=== PATIENT | female | born 1980 | race Caucasian/White ===

== ENCOUNTER → 2017-01-17 | Outpatient (CLI) | payer OTHER ==
[~2017-01-17] MED LIST: CEPH500C PO; DCS100C PO; IBP800T PO; OXYC-197 PO; OXYC1TAB12 PO; PREN1TAB71 PO; birth control PO
--- NOTE | 2017-01-17 20:05 | Diagnostic Imaging Report ---
Right breast diagnostic mammogram. INDICATION: Asymmetries along the posterolateral aspect of the right breast seen on CC projection. The current study was also evaluated with a Computer Aided Detection (CAD) system. FINDINGS: Focal compression view and true lateral and MLO views are performed with no underlying abnormality seen. IMPRESSION: No mammographic evidence of malignancy. Ultrasound evaluation pending. ACR BI-RADS Category 0: Incomplete. (Needs additional imaging evaluation). Result letter will be mailed to the patient. Note: At least 10% of breast cancer is not imaged by mammography. Dictated by: Dictated on workstation # [id number]
--- NOTE | 2017-01-17 20:25 | Diagnostic Imaging Report ---
Right breast ultrasound. INDICATION: Asymmetries along the outer aspect of the right breast. FINDINGS: The four quadrants and retroareolar region of the right breast were scanned with no underlying abnormality seen. IMPRESSION: Negative study. ACR BI-RADS Category 1: Negative. Dictated by: Dictated on workstation # [id number]
== END ==
LOC: RAD 12:21
PROVIDERS: ATTEND Family Medicine
DX: R92.2 Inconclusive mammogram (principal)
CPT/HCPCS: 76641

== ENCOUNTER 2017-11-16 22:02 | Emergency (ER) | payer OTHER ==
[~2017-11-16] VITALS: Ht 154.9 cm; Wt 85.7 kg
[2017-11-17] MEDS ORDERED: KETOROLAC 30 MG/ML VIAL IM ONE (00:30)
[2017-11-17] MEDS ORDERED: ORPHENADRINE 60 MG/2 ML (NORFLEX) AMP IM ONE (00:30)
--- NOTE | 2017-11-17 01:57 | ED General ---
General Chief Complaint: Head/Cervical Problems Stated Complaint: HEADACHE Nursing Triage Note: pt c/o cold symptoms x 1 week. headache x 2 days. Nursing Sepsis Screen: No Definite Risk Source of Information: Patient Exam Limitations: No Limitations History of Present Illness Date Seen by Provider: Nov 17, 2017 Time Seen by Provider: 00:11 Initial Comments This 37-year-old woman presents to the emergency room with complaints of cold symptoms and flulike symptoms including headache, neck ache and stiffness, ear discomfort, cough, chills, myalgia. She denies fever, vomiting, diarrhea. She is tachycardic but notes that her normal heart rate is around 100. She is also hypertensive today. Allergies and Home Medications Allergies Coded Allergies: No Known Drug Allergies (Unverified , 12/07/13) Home Medications Oxycodone HCl/Acetaminophen 1 Each Tablet, 1 EACH PO Q4H PRN for ABDOMINAL PAIN Prescribed by: SUSAN MCCARTY on 05/05/16 1150 [ control] , PO DAILY, (Reported) Patient Home Medication List Home Medication List Reviewed: Yes Constitutional: see HPI EENTM: see HPI Respiratory: see HPI Cardiovascular: see HPI Gastrointestinal: no symptoms reported Genitourinary: no symptoms reported : No Musculoskeletal: see HPI Skin: no symptoms reported Psychiatric/Neurological: See HPI Hematologic/Lymphatic: No Symptoms Reported Immunological/Allergic: no symptoms reported Past Jdymhvm-Ohdssp-Elzqpl Hx Patient Social History Alcohol Use: Denies Use Recreational Drug Use: No Smoking Status: Never a Smoker Recent Foreign Travel: No Contact w/Someone Who Travel: No Recent Infectious Disease Expo: No Recent Hopitalizations: No Physical Abuse: No Sexual Abuse: No Mistreated: No Fear: No Immunizations Up To Date Tetanus Booster (TDap): Less than 5yrs Date of Influenza Vaccine: Oct 19, 2014 Surgeries History of Surgeries: Yes Surgeries: Abdominal (Ventral hernia repair), Section Respiratory History of Respiratory Disorde: No Cardiovascular History of Cardiac Disorders: No Neurological History of Neurological Disord: No Reproductive System : No Hx Reproductive Disorders: No Genitourinary History of Genitourinary Disor: No Gastrointestinal History of Gastrointestinal Di: No Musculoskeletal History of Musculoskeletal Dis: No Endocrine History of Endocrine Disorders: No HEENT History of HEENT Disorders: No Cancer History of Cancer: No Psychosocial History of Psychiatric Problem: No Suicide Risk Score: 1 Integumentary History of Skin or Integumenta: No Blood Transfusions History of Blood Disorders: No Adverse Reaction to a Blood Tr: No Family Medical History Family Medial History: Completed stroke 19 FATHER Hypercholesterolemia 19 FATHER Hypertension 19 FATHER 19 MOTHER No Family History of: AIDS Abdominal aortic aneurysm Rudolph's disease Alcoholism Alzheimer's disease Aphasia Arthritis Asthma Cancer of mouth Cardiovascular disease Cataracts Colon cancer Congenital disease Congenital heart disease Coronary thrombosis Cystic fibrosis Deafness or hearing loss Dementia Diabetes mellitus Drug abuse Dysphasia Fibrocystic disease of breast Gastroenteritis Glaucoma Headache disorder Infertility Kidney disease Myocardial infarction Neoplasm Not obtainable due to adoption Osteoporosis Parkinson's disease Prostate cancer Psychosocial problem Respiratory disorder Seizure disorder Severe allergy Thyroid disease Tuberculosis Visual disorder Physical Exam Vital Signs Vital Signs - First Documented 11/16/17 22:22 Temp 99.1 Pulse 107 Resp 16 B/P (MAP) 173/100 (124) Pulse Ox 96 O2 Delivery Room Air Capillary Refill : Less Than 3 Seconds General Appearance: No Apparent Distress, WD/WN HEENT: PERRL/EOMI, TMs Normal, Normal ENT Inspection, Pharynx Normal Neck: Full Range of Motion, Tender Lateral, Other (No nuchal rigidity) Respiratory: Lungs Clear, Normal Breath Sounds, No Accessory Muscle Use, No Respiratory Distress, Wheezing (With forced expiration. Delayed expiratory phase) Cardiovascular: No Edema, Tachycardia Gastrointestinal: Normal Bowel Sounds, Non Tender, Soft Back: Other (Tense tender musculature in the upper back and shoulders) Extremity: Normal Inspection Neurologic/Psychiatric: Alert, Oriented x3, No Motor/Sensory Deficits, Normal Mood/Affect, naval engineer II-XII Norm as Tested Skin: Normal Color, Warm/Dry Progress/Results/Core Measures Suspected Sepsis Recent Fever Within 48 Hours: No Infection Criteria Present: Suspected New Infection New/Unexplained Altered Menta: No Sepsis Screen: No Definite Risk Sepsis Diagnosis: SIRS Temperature:99.1 Pulse: 107 Respiratory Rate: 16 Blood Pressure 173 /100 Mean: 124 Results/Orders Micro Results Microbiology 11/17/17 Influenza Types A,B Antigen (JAMEL) - Final, Complete My Orders Orders - LOVE HAINES MD Influenza A And B Antigens (11/17/17 00:21) Ketorolac Injection (Toradol Injection) (11/17/17 00:30) Orphenadrine Injection (Norflex Injectio (11/17/17 00:30) Rx-Albuterol Inhaler (Rx-Proair) (11/17/17 01:59) Medications Given in ED Vital Signs/I&O Capillary Refill : Less Than 3 Seconds Blood Pressure Mean: 124 Progress Note : Progress Note Influenza screen was negative. Patient was treated with Norflex and Toradol which improved her discomfort markedly. Blood pressure improved after pain was controlled. A take-home inhaler was dispensed to treat her bronchitis. Departure Impression Impression: Primary Impression: Flu-like symptoms Additional Impressions: Sinus tachycardia Acute headache Qualified Codes: R51 - Headache Acute bronchitis Qualified Codes: J20.9 - Acute bronchitis, unspecified Disposition: HOME, SELF-CARE Condition: Improved Departure-Patient Inst. Decision time for Depature: 01:45 Referrals: JEANNIE RODRIGUEZ MD (PCP/Family) Primary Care Physician Patient Instructions: Acute Bronchitis in Adults Add. Discharge Instructions: Drink plenty of clear liquids. You may take ibuprofen up to 600 mg every 6 hours as needed for pain. Add Tylenol (acetaminophen) up to 1000 mg every 6 hours as needed for additional relief. Schedule follow-up appointment with Dr. Rodriguez to discuss your symptoms and your high heart rate. Return to care if symptoms worsen. Use your inhaler 1-4 puffs and a four-hour period of time as needed for wheezing, uncontrolled cough, and shortness of breath. All discharge instructions reviewed with patient and/or family. Voiced understanding. LOVE HAINES MD Nov 17, 2017 01:57
[2017-11-17] MEDS ORDERED: RX-ALBUTEROL INHALER (PROAIR) 8 GM IH STA (01:59)
[2017-11-17 02:08] VITALS: BP 137/97
== END 2017-11-17 02:08 | disposition home or self-care (01) ==
LOC: EDUNIT# 22:02 → ER 22:03
DX: J11.1 Influenza due to unidentified influenza virus with other respiratory manifestations (principal); R00.0 Tachycardia, unspecified; R51 Headache; J20.9 Acute bronchitis, unspecified; Z82.49 Family history of ischemic heart disease and other diseases of the circulatory system
CPT/HCPCS: 87804; 99284

== ENCOUNTER 2020-09-30 11:44 | Emergency (ER) | payer BC, OTHER ==
[~2020-09-30] VITALS: Ht 157.4 cm; Wt 90.7 kg
[~2020-09-30 11:44] MED LIST changes: -OXYC-197 PO; +OXYC1TAB87 PO
[2020-09-30 12:00] VITALS: BP 181/128
[2020-09-30] MEDS ORDERED: PRD20T PO (12:06)
[2020-09-30] MEDS ORDERED: AZIT250T12 PO (12:06)
--- NOTE | 2020-09-30 12:07 | ED EENT ---
History of Present Illness General Chief Complaint: Ear Problems Stated Complaint: EAR DRAINAGE, HORSENESS Source: patient Exam Limitations: no limitations History of Present Illness Date Seen by Provider: Sep 30, 2020 Time Seen by Provider: 12:04 Initial Comments To ER with drainage from her left ear for about 2 or 3 days. This morning she awakened with a hoarse voice. No fevers chills or cough. Timing/Duration: abrupt Severity: moderate Location: throat Prearrival Treatment: no prearrival treatment Associated Symptoms: denies symptoms Allergies and Home Medications Allergies Coded Allergies: No Known Drug Allergies (Unverified , 12/07/13) Home Medications Oxycodone HCl/Acetaminophen 1 Each Tablet, 1 EACH PO Q4H PRN for ABDOMINAL PAIN Prescribed by: SUSAN MCCARTY on 05/05/16 1150 [ control] , PO DAILY, (Reported) Patient Home Medication List Home Medication List Reviewed: Yes Review of Systems Review of Systems Constitutional: see HPI Eyes: No Symptoms Reported Ears: No Symptoms Reported Nose: no symptoms reported Mouth: no symptoms reported Throat: see HPI Respiratory: no symptoms reported Cardiovascular: no symptoms reported Musculoskeletal: no symptoms reported Past Iwgawxx-Kmxxid-Dkacyp Hx Patient Social History Recent Hopitalizations: No Immunizations Up To Date Tetanus Booster (TDap): Less than 5yrs Date of Influenza Vaccine: Oct 19, 2014 Past Medical History Surgeries: Yes Abdominal, Section Respiratory: No Cardiac: No Neurological: No Reproductive Disorders: No Genitourinary: No Gastrointestinal: No Musculoskeletal: No Endocrine: No HEENT: No Cancer: No Psychosocial: No Integumentary: No Blood Disorders: No Adverse Reaction/Blood Tranf: No Family Medical History Completed stroke 19 FATHER Hypercholesterolemia 19 FATHER Hypertension 19 FATHER 19 MOTHER No Family History of: AIDS Abdominal aortic aneurysm Redwood's disease Alcoholism Alzheimer's disease Aphasia Arthritis Asthma Cancer of mouth Cardiovascular disease Cataracts Colon cancer Congenital disease Congenital heart disease Coronary thrombosis Cystic fibrosis Deafness or hearing loss Dementia Diabetes mellitus Drug abuse Dysphasia Fibrocystic disease of breast Gastroenteritis Glaucoma Headache disorder Infertility Kidney disease Myocardial infarction Neoplasm Not obtainable due to adoption Osteoporosis Parkinson's disease Prostate cancer Psychosocial problem Respiratory disorder Seizure disorder Severe allergy Thyroid disease Tuberculosis Visual disorder Physical Exam Height, Weight, BMI Height: 5'1.00" Weight: 189lbs. 0.0oz. 85.526428la; 29.95 BMI Method:Stated General Appearance: WD/WN, no apparent distress Eyes: bilateral eye normal inspection, bilateral eye PERRL, bilateral eye EOMI Ears: bilateral ear auricle normal, bilateral ear canal normal, bilateral ear TM normal, bilateral ear other (The external auditory canal on both sides is clean with minimal cerumen. The tympanic membrane is easily visualized and pearly collins without bulging or erythema.) Nose: normal inspection Mouth/Throat: normal mouth inspection, pharynx normal Neck: non-tender, full range of motion Respiratory: no respiratory distress, no accessory muscle use Neurologic/Psychiatric: alert, normal mood/affect, oriented x 3 Skin: normal color, warm/dry Departure Impression Primary Impression: Laryngitis Disposition: HOME, SELF-CARE Condition: Stable Departure-Patient Inst. Decision time for Depature: 12:05 Referrals: JEANNIE BERRY MD (PCP/Family) Primary Care Physician Patient Instructions: Laryngitis Add. Discharge Instructions: 1. Steroids as directed. If no improvement in 2 days then you can start the antibiotic. If you do improve then do not start the antibiotic. Return to ER for any worsening. All discharge instructions reviewed with patient and/or family. Voiced understanding. Scripts Prednisone (Prednisone) 20 Mg Tab 40 MG PO DAILY, #4 TAB 0 Refills Prov: CARLOS CLAROS APRN 09/30/20 Azithromycin (Azithromycin) 250 Mg Tablet 250 MG PO UD, #6 TAB TAKE 2 TABLETS ON DAY ONE THEN TAKE 1 TABLET DAILY FOR FOUR MORE DAYS Prov: CARLOS CLAROS APRN 09/30/20 CARLOS CLAROS APRN Sep 30, 2020 12:06
[2020-09-30] MEDS ORDERED: cloNIDine 0.1 MG (CATAPRES) TAB PO ONE (12:15)
== END 2020-09-30 12:40 | disposition home or self-care (01) ==
LOC: EDUNIT# 11:44 → ER 11:47
DX: J04.0 Acute laryngitis (principal); Z82.49 Family history of ischemic heart disease and other diseases of the circulatory system
CPT/HCPCS: 99284

== ENCOUNTER 2020-11-18 06:07 | Emergency (ER) | payer BC ==
[~2020-11-18] VITALS: Ht 157.4 cm; Wt 90.7 kg
[~2020-11-18 06:07] MED LIST changes: +AZIT250T12 PO; +PRD20T PO
--- NOTE | 2020-11-18 06:23 | ED EENT ---
History of Present Illness General Chief Complaint: Oral/Throat Problems Stated Complaint: THROAT PAIN;DIFFICULTY BREATHING Source: patient Exam Limitations: no limitations History of Present Illness Date Seen by Provider: Nov 18, 2020 Time Seen by Provider: 06:15 Initial Comments Patient is a 40-year-old female who presents to the emergency department today with a chief complaint of throat pain/hoarseness. Patient woke up with the pain this morning at around 3 AM. Patient states "I think my laryngitis is back". Patient states that she had similar symptoms at the end of September and was treated with steroids and antibiotics. Patient denies any fevers or chills, cough congestion or upper respiratory symptoms. Patient states she feels a little bit of shortness of breath secondary to her "throat closing". Patient denies any history of Covid contacts. She is a non-smoker, nondrinker, no street drug use. Patient denies any allergies to medications. Patient tells me that she has a history of hypertension and takes a blood pressure medication that is combined with a diuretic. She has not taken her medications this morning. Blood pressure at the bedside is 175/108. She denies headache, vision changes. No chest pain, abdominal pain. All other review of systems reviewed and negative except as stated. Timing/Duration: abrupt (3 AM) Severity: moderate Location: throat Prearrival Treatment: no prearrival treatment Associated Symptoms: denies symptoms, sore throat Allergies and Home Medications Allergies Coded Allergies: No Known Drug Allergies (Unverified , 12/07/13) Home Medications Azithromycin 250 Mg Tablet, 250 MG PO UD TAKE 2 TABLETS ON DAY ONE THEN TAKE 1 TABLET DAILY FOR FOUR MORE DAYS Prescribed by: CARLOS CLAROS on 09/30/20 1206 Oxycodone HCl/Acetaminophen 1 Each Tablet, 1 EACH PO Q4H PRN for ABDOMINAL PAIN Prescribed by: SUSAN MCCARTY on 05/05/16 1150 Prednisone 20 Mg Tab, 40 MG PO DAILY Prescribed by: CARLOS CLAROS on 09/30/20 1206 [ control] , PO DAILY, (Reported) Patient Home Medication List Home Medication List Reviewed: Yes Review of Systems Review of Systems Constitutional: see HPI Eyes: No Symptoms Reported Ears: No Symptoms Reported Nose: no symptoms reported Mouth: no symptoms reported Throat: hoarse Respiratory: short of breath Cardiovascular: no symptoms reported Gastrointestinal: no symptoms reported : No Musculoskeletal: no symptoms reported Skin: no symptoms reported All Other Systems Reviewed Negative Unless Noted: Yes Past Wkqizub-Jtqtze-Cmwmfn Hx Patient Social History 2nd Hand Smoke Exposure: No Recent Hopitalizations: No Immunizations Up To Date Tetanus Booster (TDap): Less than 5yrs Date of Influenza Vaccine: Oct 19, 2014 Past Medical History Surgeries: Yes Abdominal, Section Respiratory: No Cardiac: No Neurological: No Reproductive Disorders: No Genitourinary: No Gastrointestinal: No Musculoskeletal: No Endocrine: No HEENT: No Cancer: No Psychosocial: No Integumentary: No Blood Disorders: No Adverse Reaction/Blood Tranf: No Family Medical History Completed stroke 19 FATHER Hypercholesterolemia 19 FATHER Hypertension 19 FATHER 19 MOTHER No Family History of: AIDS Abdominal aortic aneurysm Rudolph's disease Alcoholism Alzheimer's disease Aphasia Arthritis Asthma Cancer of mouth Cardiovascular disease Cataracts Colon cancer Congenital disease Congenital heart disease Coronary thrombosis Cystic fibrosis Deafness or hearing loss Dementia Diabetes mellitus Drug abuse Dysphasia Fibrocystic disease of breast Gastroenteritis Glaucoma Headache disorder Infertility Kidney disease Myocardial infarction Neoplasm Not obtainable due to adoption Osteoporosis Parkinson's disease Prostate cancer Psychosocial problem Respiratory disorder Seizure disorder Severe allergy Thyroid disease Tuberculosis Visual disorder Physical Exam Vital Signs Vital Signs - First Documented 11/18/20 06:10 Temp 35.7 Pulse 106 Resp 18 B/P (MAP) 175/108 (130) Pulse Ox 98 O2 Delivery Room Air Height, Weight, BMI Height: 5'1.00" Weight: 189lbs. 0.0oz. 85.729865dp; 36.00 BMI Method:Stated General Appearance: WD/WN, no apparent distress Eyes: bilateral eye normal inspection, bilateral eye PERRL, bilateral eye abnormal EOM Ears: bilateral ear TM normal Nose: normal inspection Mouth/Throat: normal mouth inspection, pharynx normal; No dental tenderness, No pharynx swelling, No tongue swollen, No tonsillar exudate, No uvula swelling; voice changes Neck: full range of motion, supple, normal inspection Cardiovascular: regular rate, rhythm Respiratory: lungs clear, normal breath sounds, no respiratory distress, no accessory muscle use Gastrointestinal: non tender, soft Neurologic/Psychiatric: no motor/sensory deficits, alert, normal mood/affect, oriented x 3 Skin: normal color, warm/dry Progress/Results/Core Measures Results/Orders Vital Signs/I&O 11/18/20 06:10 Temp 35.7 Pulse 106 Resp 18 B/P (MAP) 175/108 (130) Pulse Ox 98 O2 Delivery Room Air Departure Impression Primary Impression: Laryngitis Disposition: HOME, SELF-CARE Condition: Stable Departure-Patient Inst. Decision time for Depature: 06:24 Referrals: JEANNIE BERRY MD (PCP/Family) Primary Care Physician Patient Instructions: Laryngitis (DC) Add. Discharge Instructions: Drink plenty of fluids to stay well-hydrated. Use thqg-[id number] Tylenol 2 extra strength tablets, every 4 hours as needed for throat pain. Warm salt water gargles. Take the prednisone as directed starting tomorrow for the next 3 days. If you develop fever, worsening shortness of breath, worsening sore throat or any other emergent concerning symptoms please come back to the emergency department for reevaluation. Make sure you take your blood pressure medications this morning. Scripts Prednisone (Prednisone) 20 Mg Tab 40 MG PO DAILY, #6 TAB 0 Refills Prov: KIANA MILLIGAN MD 11/18/20 KIANA MILLIGAN MD Nov 18, 2020 06:23
[2020-11-18] MEDS ORDERED: PRD20T PO (06:25)
[2020-11-18 06:47] VITALS: BP 155/95
== END 2020-11-18 06:47 | disposition home or self-care (01) ==
LOC: EDUNIT# 06:07 → ER 06:09
DX: J04.0 Acute laryngitis (principal); I10 Essential (primary) hypertension; Z79.899 Other long term (current) drug therapy; Z79.3 Long term (current) use of hormonal contraceptives; Z79.52 Long term (current) use of systemic steroids
CPT/HCPCS: 99284

== ENCOUNTER 2020-12-26 02:11 | Emergency (ER) | payer BC ==
[~2020-12-26] VITALS: Ht 157.4 cm; Wt 90.7 kg
--- NOTE | 2020-12-26 02:28 | ED EENT ---
History of Present Illness General Stated Complaint: POSS ALLERGIC RXN,SOB Source: patient Exam Limitations: no limitations History of Present Illness Date Seen by Provider: Dec 26, 2020 Time Seen by Provider: 02:16 Initial Comments Patient presents to the ER by private conveyance with chief complaint she woke up just prior to arrival feeling like her throat was swelling shut. She does not have a history of anaphylaxis however she has had similar symptoms to this and was told it was laryngitis. She has had no sick contacts fevers chills cough or shortness of air. She went to her sinus track meet last night and everything was okay until she woke up early this morning. She has had no new medications, detergents, foods etc. She did not take anything for it before coming in. She is able to swallow her own secretions. She denies nausea vomiting or diarrhea. Allergies and Home Medications Allergies Coded Allergies: No Known Drug Allergies (Unverified , 12/07/13) Home Medications Azithromycin 250 Mg Tablet, 250 MG PO UD TAKE 2 TABLETS ON DAY ONE THEN TAKE 1 TABLET DAILY FOR FOUR MORE DAYS Prescribed by: CARLOS CLAROS on 09/30/20 1206 Oxycodone HCl/Acetaminophen 1 Each Tablet, 1 EACH PO Q4H PRN for ABDOMINAL PAIN Prescribed by: SUSAN MCCARTY on 05/05/16 1150 Prednisone 20 Mg Tab, 40 MG PO DAILY Prescribed by: CARLOS CLAROS on 09/30/20 1206 Prednisone 20 Mg Tab, 40 MG PO DAILY Prescribed by: KIANA MILLIGAN on 11/18/20 0625 [ control] , PO DAILY, (Reported) Patient Home Medication List Home Medication List Reviewed: Yes Review of Systems Review of Systems Constitutional: No chills, No diaphoresis Eyes: Denies Blindness, Denies Drainage Ears: Denies Dizziness, Denies Pain Nose: denies clots, denies congestion Mouth: denies clots, denies pain, denies swelling Throat: pain, swelling; denies neck stiffness; hoarse Respiratory: No cough; short of breath Cardiovascular: No edema, No palpitations Gastrointestinal: No abdominal pain, No nausea, No vomiting Musculoskeletal: No back pain, No joint pain All Other Systems Reviewed Negative Unless Noted: Yes Past Silbfly-Itkpzj-Tjxtwr Hx Patient Social History Alcohol Use: Denies Use Drug of Choice: Denies Smoking Status: Never a Smoker 2nd Hand Smoke Exposure: No Recent Hopitalizations: No Immunizations Up To Date Tetanus Booster (TDap): Less than 5yrs Date of Influenza Vaccine: Oct 19, 2014 Seasonal Allergies Seasonal Allergies: Yes Past Medical History Surgeries: Yes Abdominal, Section, Tubal Ligation Respiratory: No Cardiac: Yes Hypertension Neurological: No 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 Genitourinary: No Gastrointestinal: No Musculoskeletal: No Endocrine: No HEENT: No Cancer: No Psychosocial: No Integumentary: No Blood Disorders: No Adverse Reaction/Blood Tranf: No Family Medical History Completed stroke 19 FATHER Hypercholesterolemia 19 FATHER Hypertension 19 FATHER 19 MOTHER No Family History of: AIDS Abdominal aortic aneurysm Rud[place]'s disease Alcoholism Alzheimer's disease Aphasia Arthritis Asthma Cancer of mouth Cardiovascular disease Cataracts Colon cancer Congenital disease Congenital heart disease Coronary thrombosis Cystic fibrosis Deafness or hearing loss Dementia Diabetes mellitus Drug abuse Dysphasia Fibrocystic disease of breast Gastroenteritis Glaucoma Headache disorder Infertility Kidney disease Myocardial infarction Neoplasm Not obtainable due to adoption Osteoporosis Parkinson's disease Prostate cancer Psychosocial problem Respiratory disorder Seizure disorder Severe allergy Thyroid disease Tuberculosis Visual disorder Physical Exam Vital Signs Vital Signs - First Documented 12/26/20 02:18 Temp 36.2 Pulse 113 Resp 20 B/P (MAP) 151/91 (111) Pulse Ox 98 Height, Weight, BMI Height: 5'1.00" Weight: 189lbs. 0.0oz. [id number]; 36.00 BMI Method:Stated General Appearance: WD/WN, mild distress Eyes: bilateral eye normal inspection, bilateral eye PERRL, bilateral eye EOMI Ears: bilateral ear auricle normal, bilateral ear canal normal, bilateral ear TM normal Nose: normal inspection; No discharge Mouth/Throat: normal mouth inspection, pharynx normal (No sublingual, or other soft tissue swelling.), voice changes (Vocal cords sound strained) Neck: non-tender, full range of motion, supple, normal inspection, lymphadenopathy (R), lymphadenopathy (L) (Bilateral anterior shotty lymphadenopathy) Cardiovascular: normal peripheral pulses, regular rate, rhythm (Heart rate 87), no edema Respiratory: lungs clear, normal breath sounds, no respiratory distress, no acc essory muscle use; No stridor Gastrointestinal: normal bowel sounds, soft Neurologic/Psychiatric: alert, oriented x 3, other (Anxious affect) Skin: normal color, warm/dry Progress/Results/Core Measures Results/Orders Lab Results Laboratory Tests Test 12/26/20 02:20 Range/Units Group A Streptococcus Screen NEGATIVE NEGATIVE My Orders Orders - SVETLANA RAMIREZ Loratadine Tablet (Claritin Tablet) (12/26/20 02:30) Diphenhydramine Tablet (Benadryl Tablet) (12/26/20 02:30) Famotidine Tablet (Pepcid Tablet) (12/26/20 02:30) Rapid Strep A Screen (12/26/20 02:21) Medications Given in ED Current Medications Medications Dose Ordered Sig/Darío Route Start Time Stop Time Status Last Admin Dose Admin Diphenhydramine HCl 25 mg ONCE ONCE PO 12/26/20 02:30 12/26/20 02:31 DC 12/26/20 02:30 25 MG Famotidine 20 mg ONCE ONCE PO 12/26/20 02:30 12/26/20 02:31 DC 12/26/20 02:30 20 MG Loratadine 10 mg ONCE ONCE PO 12/26/20 02:30 12/26/20 02:31 DC 12/26/20 02:35 10 MG Vital Signs/I&O 12/26/20 02:18 Temp 36.2 Pulse 113 Resp 20 B/P (MAP) 151/91 (111) Pulse Ox 98 Progress Progress Note #1: Time: 02:26 Progress Note Suspect pharyngitis either from viral, strained voice from being at a track meet last night or less likely bacterial. Plan to do a rapid strep give her some Benadryl Pepcid and Claritin. We will then observe her for a short while. This provider does do not appreciate any significant soft tissue swelling of the pharynx on visual inspection. Progress Note #2: Time: 03:13 Progress Note Patient feels like she is a little bit better so were going to encourage her to use antihistamines for the next couple days. Rapid strep was negative. No evidence of increasing swelling of soft tissues of the tongue or throat at this time. Departure Impression Primary Impression: Laryngitis Disposition: 01 HOME, SELF-CARE Condition: Stable Departure-Patient Inst. Decision time for Depature: 03:14 Referrals: JEANNIE BERRY MD (PCP/Family) Primary Care Physician Patient Instructions: Laryngitis (DC) Add. Discharge Instructions: Claritin/loratadine 10 mg a day until symptoms improve. Pepcid 20 mg twice a day until symptoms improve. Benadryl 1 tablet every 6 hours as necessary for worsening laryngitis. Rest your voice for the next couple days and minimize talking. Return to the ER promptly if you are having increasing swelling or difficulty breathing/swallowing fluids. Work/School Note: Work Release Form Date Seen in the Emergency Department: Dec 26, 2020 Return to Work: Dec 27, 2020 Restrictions: No Restrictions SVETLANA RAMIREZ Dec 26, 2020 02:28
[2020-12-26] MEDS ORDERED: LORATADINE (CLARITIN) 10 MG TAB PO ONE (02:30)
[2020-12-26] MEDS ORDERED: diphenhydrAMINE 25 MG TAB (BENADRYL) PO ONE (02:30)
[2020-12-26] MEDS ORDERED: FAMOTIDINE 20 MG (PEPCID) TABLET PO ONE (02:30)
[2020-12-26 03:21] VITALS: BP 150/86
== END 2020-12-26 03:20 | disposition home or self-care (01) ==
LOC: EDUNIT# 02:11 → ER 02:14
DX: J04.0 Acute laryngitis (principal); I10 Essential (primary) hypertension; Z79.52 Long term (current) use of systemic steroids
CPT/HCPCS: 87430; 99284

== ENCOUNTER 2021-07-17 19:24 | Emergency (ER) | payer BC ==
[~2021-07-17] VITALS: Ht 61 cm; Wt 90.7 kg
[2021-07-17] MEDS ORDERED: TETANUS,DIPTH,PERTUSS P/F (BOOSTRIX) 0.5 ML VIAL IM ONE (19:45)
[2021-07-17] MEDS ORDERED: LIDOCAINE 1% INJ 20 ML 20 ML VIAL INJ ONE (19:45)
--- NOTE | 2021-07-17 19:50 | ED Integumentary General ---
General Chief Complaint: Skin/Wound Problems Stated Complaint: L LEG KNOT/SWELLING/PAIN Source: patient Exam Limitations: no limitations History of Present Illness Date Seen by Provider: Jul 17, 2021 Time Seen by Provider: 19:35 Initial Comments Patient to the ER by private conveyance with her significant other and chief complaint of 1 week progressively worsening redness swelling pain in her left groin region with a knot. It has drained a little bit. She has had this once before in the past. No fever chills nausea vomiting diarrhea dysuria. Allergies and Home Medications Allergies Coded Allergies: No Known Drug Allergies (Unverified , 12/07/13) Patient Home Medication List Home Medication List Reviewed: Yes Azithromycin (Azithromycin) 250 Mg Tablet, 250 MG PO UD Prescribed by: CARLOS CLAROS on 09/30/20 1206 Oxycodone HCl/Acetaminophen (Percocet 5-325 mg Tablet) 1 Each Tablet, 1 EACH PO Q4H PRN for ABDOMINAL PAIN Prescribed by: SUSAN MCCARTY on 05/05/16 1150 Prednisone (Prednisone) 20 Mg Tab, 40 MG PO DAILY Prescribed by: CARLOS CLAROS on 09/30/20 1206 Prednisone (Prednisone) 20 Mg Tab, 40 MG PO DAILY Prescribed by: KIANA MILLIGAN on 11/18/20 0625 [ control] , PO DAILY, (Reported) Entered as Reported by: CHIP LUIS on 05/05/16 0827 Review of Systems Review of Systems Constitutional: No chills, No diaphoresis EENTM: No ear discharge, No ear pain Respiratory: No cough, No dyspnea on exertion Cardiovascular: No chest pain, No palpitations Gastrointestinal: No abdominal pain, No constipation, No nausea All Other Systems Reviewed Negative Unless Noted: Yes Past Otafghb-Cbiryf-Iqeuvd Hx Patient Social History Tobacco Use?: No Substance use?: No Alcohol Use?: No Immunizations Up To Date Tetanus Booster (TDap): Less than 5yrs Seasonal Allergies Seasonal Allergies: Yes Past Medical History Surgeries: Yes Abdominal, Section, Tubal Ligation Respiratory: No Cardiac: Yes Hypertension Neurological: No 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 Genitourinary: No Gastrointestinal: No Musculoskeletal: No Endocrine: No HEENT: No Cancer: No Psychosocial: No Integumentary: No Blood Disorders: No Adverse Reaction/Blood Tranf: No Family Medical History Completed stroke 19 FATHER Hypercholesterolemia 19 FATHER Hypertension 19 FATHER 19 MOTHER No Family History of: AIDS Abdominal aortic aneurysm [place]'s disease Alcoholism Alzheimer's disease Aphasia Arthritis Asthma Cancer of mouth Cardiovascular disease Cataracts Colon cancer Congenital disease Congenital heart disease Coronary thrombosis Cystic fibrosis Deafness or hearing loss Dementia Diabetes mellitus Drug abuse Dysphasia Fibrocystic disease of breast Gastroenteritis Glaucoma Headache disorder Infertility Kidney disease Myocardial infarction Neoplasm Not obtainable due to adoption Osteoporosis Parkinson's disease Prostate cancer Psychosocial problem Respiratory disorder Seizure disorder Severe allergy Thyroid disease Tuberculosis Visual disorder Physical Exam Vital Signs Capillary Refill : General Appearance: WD/WN, mild distress HEENT: PERRL/EOMI, pharynx normal Neck: full range of motion, supple, normal inspection Cardiovascular: normal peripheral pulses, regular rate, rhythm Respiratory: no respiratory distress, no accessory muscle use Gastrointestinal: non tender, soft Neurologic/Psychiatric: alert, normal mood/affect, oriented x 3 Skin: other (Erythematous area of mild induration over the left groin and hair follicles with a nodule just under the skin that is fluctuant palpable approximately 1 to 2 cm diameter. Areas of pointing noted.) Procedures/Interventions I&D : Site: Left proximal groin Blade Size: 11 I & D Procedure: betadine prep (Chlorhexidine), sterile dressing applied Progress Infiltrated the site with 4 cc of 1% lidocaine without epinephrine. When the skin was ascertained to be well anesthetized we used an 11 blade scalpel to make a crosswise incision 3 x 3 mm. We are then able to express about 5 to 10 cc purulent material. A blunt end of a sterile cotton tipped applicator was used to break up loculations. We then flushed the wound with another 10 cc of sterile saline and put dry clean gauze over it. Progress/Results/Core Measures Results/Orders My Orders Orders - SVETLANA RAMIREZ Lidocaine 1% Inj 20 Ml (Xylocaine 1% Inj (07/17/21 19:45) Dipht,Pertuss(Acell),Tet Adult (Boostrix (07/17/21 19:45) Departure Impression Primary Impression: Abscess Additional Impression: Folliculitis Disposition: 01 HOME, SELF-CARE Condition: Stable Departure-Patient Inst. Decision time for Depature: 19:59 Referrals: JEANNIE BERRY MD (PCP/Family) Primary Care Physician Patient Instructions: Bacterial Folliculitis (DC), Abscess Incision and Drainage ED Add. Discharge Instructions: Keep the skin clean and dry. Use regular soap and water to clean. Keep a dry clean gauze dressing over it and change it at least daily or more frequently if it becomes soiled. Do not submerse until the wound has healed. Showers are okay. Bactrim 1 tablet twice a day with food for the next week. Heat applied directly to the site can help with healing and pain. Tylenol 1000 mg every 8 hours as necessary for pain. Ibuprofen 800 mg every 8 hours as necessary for pain. All discharge instructions reviewed with patient and/or family. Voiced understanding. Scripts Sulfamethoxazole/Trimethoprim (Bactrim Ds Tablet) 1 Each Tablet 1 EACH PO BID for 7 Days, #14 TAB 0 Refills Prov: SVETLANA RAMIREZ 07/17/21 SVETLANA RAMIREZ Jul 17, 2021 19:50
[2021-07-17] MEDS ORDERED: SULF1TAB38 PO (20:01)
[2021-07-17 20:18] VITALS: BP 170/93
== END 2021-07-17 20:18 | disposition home or self-care (01) ==
LOC: EDUNIT# 19:24 → ER 19:25
DX: L02.214 Cutaneous abscess of groin (principal); L73.9 Follicular disorder, unspecified; I10 Essential (primary) hypertension; Z23 Encounter for immunization
CPT/HCPCS: 90715; 99284

== ENCOUNTER → 2022-10-08 | Outpatient (CLI) | payer BC ==
[~2022-10-08] MED LIST changes: +SULF1TAB38 PO
--- NOTE | 2022-10-08 13:17 | Diagnostic Imaging Report ---
INDICATION: Hypertension. EXAMINATION: Doppler renal ultrasound. FINDINGS: Ultrasound of the kidneys was done with grayscale, spectral waveform, and color Doppler analysis. FINDINGS: Right kidney measures 9.1 x 5.4 x 4.8 cm. Left kidney measures 11.0 x 4.7 x 4.9 cm. There is no mass, calculus, or hydronephrosis in either kidney. The renal arteries have normal peak systolic velocities. The renal/aortic peak systolic velocity ratios are also normal. IMPRESSION: Normal renal ultrasound. No evidence for renal artery stenosis. Dictated by: Dictated on workstation # [id number]
== END ==
LOC: RAD 08:59
PROVIDERS: ATTEND Internal Medicine Cardiovascular Disease
DX: I10 Essential (primary) hypertension (principal)
CPT/HCPCS: 76770; 93975; C8929; 93306

== ENCOUNTER → 2022-10-12 | Outpatient (CLI) | payer BC ==
[~2022-10-12] VITALS: Ht 154 cm; Wt 91.0 kg
[~2022-10-12] MED LIST changes: +REGADENOSON 0.4 MG/5 ML SYR (LEXISCAN) IV ONE
[2022-10-12] MEDS: CATHETER FLUSH 10 ML SYR IVP PRN ×2 (11:30→13:09)
[2022-10-12 13:07] VITALS: BP 180/100
--- NOTE | 2022-10-17 19:53 | STRESS TEST ---
DATE OF SERVICE: 10/12/2022 RESTING AND POST REGADENOSON TECHNETIUM-99M TETROFOSMIN SPECT CT IMAGING ORDERING PHYSICIAN: Dr. Eldridge. PRIMARY PHYSICIAN: Dr. Rodriguez. CLINICAL DIAGNOSIS: Chest pain. Baseline images were carried out after injection of 10.52 mCi of technetium-99m tetrofosmin. This was followed by 0.4 mg regadenoson and 28.2 mCi of technetium-99m tetrofosmin for stress imaging. The electrocardiogram showed sinus rhythm at baseline. It did not change significantly with regadenoson infusion. The patient tolerated the procedure well. Review of images at rest and following stress does not indicate any significant perfusion defects consistent with myocardial ischemia or infarction. Gated images showed normal global left ventricular systolic function with normal regional wall motion. Left ventricular ejection fraction is calculated to be 63%. CONCLUSIONS: 1. No evidence of any significant myocardial ischemia or infarction on this study. 2. Normal regional wall motion. 3. Normal global left ventricular systolic function with a calculated ejection fraction 63%. Job ID: [id number] DocumentID: [id number] Dictated Date: 10/17/2022 15:35:42 Well Service Floorperson Date: 10/17/2022 16:21:00 Dictated By: JERONIMO AGRAWAL MD; ALLIE; FACP; FACC;
== END ==
LOC: CARD 11:30
PROVIDERS: ATTEND Internal Medicine Cardiovascular Disease
DX: R07.89 Other chest pain (principal)
CPT/HCPCS: 78452; 93017; A9502